=== PATIENT | female | born 1970 | race Two or more races ===

== ENCOUNTER 2021-12-07 00:21 | Emergency (ER) | payer SELFPAY ==
[2021-12-07 00:35] VITALS: BMI 30.5
[2021-12-07] MEDS ORDERED: METOCLOPRAMIDE HCL INJECTION 10 MG/2 ML VIAL IVPUSH ONE (00:58)
[2021-12-07] MEDS ORDERED: LISINOPRIL 20 MG TABLET PO ONE (00:59)
[2021-12-07] MEDS ORDERED: METOCLOPRAMIDE HCL INJECTION 10 MG/2 ML VIAL ONE (01:13)
[2021-12-07] MEDS ORDERED: LISINOPRIL 20 MG TABLET ONE (01:14)
[2021-12-07 01:35] LABS: BASO % 0.4 % (0-2.0); EOS % 0.4 % (0-4.5); HEMOGLOBIN 15.7 GM/dL (10.7-15.3); LYMPH % 9.7 % (8-40); MCH 30.3 pg (25.7-33.7); MCHC 34.1 g/dl (32.0-36.0); MEAN PLT VOLUME 7.5 fl (7.5-11.1); MONO % 6.8 % (3.8-10.2); NEUT % 82.7 % (42.8-82.8); PLATELET COUNT 305 10^3/uL (134-434); RBC 5.17 M/mm3 (3.60-5.2); RDW 14.8 % (11.6-15.6); WHITE BLOOD COUNT 12.1 K/mm3 (4.0-10.0)
[2021-12-07 01:53] LABS: CALCIUM 9.9 mg/dL (8.5-10.1)
[2021-12-07 01:54] LABS: BLOOD UREA NITROGEN 20.1 mg/dL (7-18)
[2021-12-07 01:57] LABS: CREATININE 1.2 mg/dL (0.55-1.3)
[2021-12-07 01:58] LABS: TOT PROT 8.1 g/dl (6.4-8.2)
[2021-12-07 01:59] LABS: BILIRUBIN,TOTAL 0.5 mg/dL (0.2-1)
[2021-12-07] MEDS ORDERED: ACETAMINOPHEN 500 MG TABLET (FP) PO ONE (03:38)
[2021-12-07] MEDS ORDERED: ACETAMINOPHEN 1000 MG/100 ML BAG IVPB ONE (03:39)
[2021-12-07] MEDS ORDERED: ACETAMINOPHEN INJECTION 100 ML IVPB ONE (03:46)
[2021-12-07] MEDS ORDERED: NICARDIPINE 25 MG in DEXTROSE 5%-WATER - 240 ML IVPB SCH (04:00)
[2021-12-07] MEDS ORDERED: LABETALOL HCL 5 MG/1 ML (100MG/20 ML VIAL) IVPUSH ONE (04:05)
[2021-12-07] MEDS ORDERED: LABETALOL HCL 5 MG/1 ML (100MG/20 ML VIAL) ONE (04:07)
[2021-12-07 04:55] VITALS: PULSE 65; TEMP 98.8
[2021-12-07 05:00] VITALS: BP 180/102
== END 2021-12-07 05:01 | disposition short-term general hospital (02) ==
LOC: JER 00:21
PROC: 3E0333Z Introduction of Anti-inflammatory into Peripheral Vein, Percutaneous Approach (ICD-10-PCS; principal; 2021-12-07)
PROC: 3E033GC Introduction of Other Therapeutic Substance into Peripheral Vein, Percutaneous Approach (ICD-10-PCS; 2021-12-07)
PROC: 3E033GC Introduction of Other Therapeutic Substance into Peripheral Vein, Percutaneous Approach (ICD-10-PCS; 2021-12-07)
PROC: 3E033GC Introduction of Other Therapeutic Substance into Peripheral Vein, Percutaneous Approach (ICD-10-PCS; 2021-12-07)
DX: I60.9 Nontraumatic subarachnoid hemorrhage, unspecified (principal)
CPT/HCPCS: 36415; 70450-TC; 70496-TC; 70498-TC; 80053; 82962; 84443; 85025; 99285-25; C9803; J0131; U0003; U0005

== ENCOUNTER 2022-09-06 13:04 | Emergency (ER) | payer OTHER ==
[2022-09-06 13:13] VITALS: BP 103/65; PULSE 88; RESP 18; TEMP 98.1; BMI 31.1
[2022-09-06] MEDS ORDERED: IBUPROFEN 600 MG TABLET (FP) PO ONE ×2 (15:02→15:14)
== END 2022-09-06 15:31 | disposition home or self-care (01) ==
LOC: JERFT 13:04
DX: H60.502 Unspecified acute noninfective otitis externa, left ear (principal)
CPT/HCPCS: 99283-25

== ENCOUNTER 2024-09-19 03:21 | Emergency (ER) | payer OTHER ==
[2024-09-19 03:31] VITALS: BP 158/89; PULSE 75; RESP 16; TEMP 97.8; BMI 32.0
[2024-09-19] MEDS ORDERED: KETOROLAC TROMETHAMINE 15 MG/ML VIAL ONE (04:06)
[2024-09-19] MEDS: KETOROLAC TROMETHAMINE 15 MG/ML VIAL IM ONE (04:09)
== END 2024-09-19 04:47 | disposition home or self-care (01) ==
LOC: JER 03:21
PROC: 3E0133Z Introduction of Anti-inflammatory into Subcutaneous Tissue, Percutaneous Approach (ICD-10-PCS; principal; 2024-09-19)
DX: M25.512 Pain in left shoulder (principal)
CPT/HCPCS: 99284-25